=== PATIENT | female | born 1980 ===

== ENCOUNTER → 2018-10-07 | Outpatient (CLI) | payer SELFPAY ==
[2018-10-07 15:04] LABS: Candida species (DNA Probe) Negative (NEGATIVE); G. vaginalis (DNA Probe) Negative (NEGATIVE); T. vaginalis (DNA Probe) Negative (NEGATIVE)
[2018-10-09 13:06] LABS: HPV 16 Negative (Negative); HPV 18 Negative (Negative); HPV OTHER HR TYPES Negative (Negative)
== END | disposition home or self-care (01) ==
LOC: LAB SHORT 12:33 → LAB 12:33
PROVIDERS: Nurse Practitioner Obstetrics & Gynecology
DX: Z01.419 Encounter for gynecological examination (general) (routine) without abnormal findings (principal); N76.0 Acute vaginitis
CPT/HCPCS: 87480; 87510; 87624; 87660; G0123

== ENCOUNTER 2020-06-18 13:14 | Observation (INO) | payer BC ==
[~2020-06-18] VITALS: Ht 160 cm; Wt 54.4 kg
[2020-06-18 13:52] LABS: BASOPHILS ABSOLUTE AUTO 0.03 K/mm3 (0.00-0.23); BASOPHILS PERCENT AUTO 0 % (0-2); EOSINOPHILS ABSOLUTE AUTO 0.01 K/mm3 (0.00-0.68); EOSINOPHILS PERCENT AUTO 0 % (0-6); Hematocrit 39.3 % (33.0-51.0); Hemoglobin 13.8 g/dL (11.5-16.0); IMMATURE GRAN ABSOLUTE AUTO 0.06 K/mm3 (0.00-0.10); IMMATURE GRAN PERCENT AUTO 0 % (0-1); LYMPHOCYTES ABSOLUTE AUTO 1.21 K/mm3 (0.84-5.20); LYMPHOCYTES PERCENT AUTO 8 % (21-46); MONOCYTES ABSOLUTE AUTO 0.62 K/mm3 (0.16-1.47); MONOCYTES PERCENT AUTO 4 % (4-13); Mean Corpuscular HGB 31.7 pg (26.0-34.0); Mean Corpuscular HGB Conc 35.1 g/dL (31.5-36.5); Mean Corpuscular Volume 90 fL (80-100); Mean Platelet Volume 9.8 fL (9.1-12.4); NEUTROPHILS ABSOLUTE AUTO 14.09 K/mm3 (1.96-9.15); NEUTROPHILS PERCENT AUTO 88 % (41-73); Platelet Count 214 K/mm3 (150-400); RDW Coefficient Variation 11.4 % (11.7-14.2); RDW Standard Deviation 37.6 fL (35.1-46.3); Red Blood Cell Count 4.35 M/mm3 (3.80-5.20); White Blood Cell Count 16.02 K/mm3 (4.00-11.30)
[2020-06-18 14:12] LABS: Alanine Aminotransfer (ALT/SGP 16 U/L (12-78); Albumin/Globulin Ratio 1.1 (0.8-1.8); Alk Phos 74 U/L (50-136); Anion Gap 7 mmol/L (6-16); Aspartate Aminotrans (AST/SGOT 11 U/L (12-37); Blood Urea Nitrogen 14 mg/dL (8-24); Bun/Creatinine Ratio 20.7 (12.0-20.0); CO2, Blood 25 mmol/L (21-32); Calcium, Blood 9.3 mg/dL (8.5-10.1); Chloride, Blood 105 mmol/L (98-108); Creatinine, Blood 0.68 mg/dL (0.40-1.00); Globulin, Blood 3.7 g/dL (2.2-4.0); Glomerular Filtration Rate >60 (60-); Glucose, Blood 99 mg/dL (70-99); Potassium, Blood 3.6 mmol/L (3.5-5.5); Sodium, Blood 137 mmol/L (136-145); Total Protein, Blood 7.7 g/dL (6.4-8.2)
[2020-06-18] MEDS ORDERED: [UNRECOGNIZED DRUG - OTHER] PO (14:54)
[2020-06-18 15:50] LABS: Influenza A, PCR NEGATIVE (NEGATIVE); Influenza B, PCR NEGATIVE (NEGATIVE); Resp Syncytial Virus, PCR NEGATIVE (NEGATIVE); SARS-Cov-2 (COVID-19) PCR, MMC NEGATIVE (NEGATIVE)
--- NOTE | 2020-06-18 17:40 | NUR ---
06/18/20 174 Chandni Burk PT ON SCHEDULED ANTIBIOTICS
--- NOTE | 2020-06-19 03:27 | NUR ---
SHIFT SUMMARY POD#1 LAP APPI. AAOX4. DISCOMFORT CONTROLLED WITH 2 NORCO Q4P. NO NAUSEA/EMESIS. ABD INCISIONS X3 C/D/I. GOOD PO INTAKE + OUTPUT. INDEPENDENT IN ROOM. IV ABX PER ORDERS. RESTED WELL T/O NIGHT.
--- NOTE | 2020-06-19 08:16 | NUR ---
A&OX3, REPORTS TOLERATING DIET WELL, C/O 08/14 INCISIONAL PAIN, MEDICATED WITH NORCO AND TORADOL, DENIES ANY NAUSEA, CONT. TO MONITOR FOR ANY CHANGES.
[2020-06-19] MEDS ORDERED: Vitamin C100 M1 PO (11:48)
[2020-06-19] MEDS ORDERED: HYDR1TAB94 PO (11:49)
[2020-06-19] MEDS ORDERED: AMOCLA875 PO (11:53)
--- NOTE | 2020-06-19 12:25 | NUR ---
DC'D HOME, DC INSTRUCTIONS GIVEN, VERBALIZED UNDERSTANDING, REPORTS HAVING ADEQUATE PAIN CONTROL WITH NORCO.
== END 2020-06-19 12:17 | disposition home or self-care (01) ==
LOC: ER 13:14 → SURS 13:15 → ER 16:13 → SURS 16:33
PROVIDERS: Physician Assistant; ADMIT Surgery
DX: K35.33 Acute appendicitis with perforation, localized peritonitis, and gangrene, with abscess (principal); J45.909 Unspecified asthma, uncomplicated; F17.200 Nicotine dependence, unspecified, uncomplicated; Z20.822 Contact with and (suspected) exposure to COVID-19
CPT/HCPCS: 0241U; 36415; 74177; 80053; 81000; 81025; 83690; 85025; 88304; 96361-59; 96374-59; 96375; 96375-59; 96376; 99285-25; A9270; G0378; J1100; J1885; J2250; J2270; J2370; J2405; J2543; J2704; J3010; J7030; Q9967